=== PATIENT | male | born 1965 | race Caucasian/White ===

== ENCOUNTER 2016-09-26 14:46 | Emergency (ER) | payer OTHER ==
--- NOTE | 2016-09-26 17:25 | ED ORDER SUMMARY ---
..... Patient: QUINCY CARTER OrderSheet [facility] VisitID: [id number] [address] [place] [address] 51y, M Registration Date/Time: 09/26/2016 ORDER SHEET Weight: 104.3 kg (stated) Allergies: Wellbutrin GENERAL ORDERS: CBC w Diff Urgent (15:42 09/26/2016 Darcie Nguyen) (Ack 15:44 TBergley) (15:45 KKnebel R.N.) CMP Urgent (15:42 09/26/2016 Darcie Nguyen) (Ack 15:44 TBergley) (15:45 KKnebel R.N.) MEDICATION ORDERS: Enalaprilat IV 2.5 mg (HIGH ALERT MEDICATION, NOW) (16:31 09/26/2016 Darcie Nguyen) (16:53 KKnebel R.N.) - (16:31 09/26/2016 Darcie Nguyen) (Ack 16:54 KKnebel R.N.) (Hold 16:55 KKnebel R.N.) IV FLUIDS: IV Saline Lock (15:42 09/26/2016 Darcie Nguyen) (15:45 KKnebel R.N.) ORDER SHEET NOTES: [Electronically signed by Nancy Luciano R.N. (19:08 09/26/2016)] [Electronically signed by Yobany Jacobsen Dr. (20:44 09/27/2016)] [Electronically locked/signed by Nancy Luciano R.N. (19:08 09/26/2016)]
--- NOTE | 2016-09-26 17:25 | ED CLINICAL REPORT ---
Clinical Report - Physicians/Mid Levels [facility] [address] [place] [address] 09/26/2016 14:48 Patient: QUINCY CARTER Time Seen: 15:32; initial patient contact. Arrived- By private vehicle. Historian- patient. HISTORY OF PRESENT ILLNESS Chief Complaint: BLOOD PRESSURE ELEVATED. At its maximum, severity described as moderate. When seen in the E.D., severity described as moderate. Modifying factors. Not worsened by anything. Not relieved by anything. This started today and is still present. It was gradual in onset. No loss of appetite, headache, visual disturbance or fatigue. No decreased urine output. Similar symptoms previously: None. Recent medical care: Not recently seen/assessed. REVIEW OF SYSTEMS No difficulty breathing, chest pain, nausea, headache or blackouts. No double vision. No difficulty with ambulation. All systems otherwise negative, except as recorded above. PAST HISTORY Suicidal Ideation. Depression. Alcohol Intoxication. Chest Pain. Peptic Ulcer Disease. Lifestyle / Substance Problems. Atypical Chest Pain. Occult GI Bleed. Gastritis. Hyponatremia. Hypomagnesemia. Abnormal EKG. Anemia. Pancreatitis. GI Bleeding. Pancreatitis. GI Bleeding. Abnormal Test. Atrial Fibrillation. Anxiety Reaction. Facial Fracture. Substance Abuse. Gastroesophageal Reflux Disease. Psychosis. Hypokalemia. Seizure. Alcohol Withdrawal. Hypertension. ADDITIONAL SURGERIES: Appendectomy. Cholecystectomy. Ronnie Fundoplasty. Medications: Atenolol Oral. Allergies: Wellbutrin. SOCIAL HISTORY Never smoker. Occasional alcohol use. No drug use. ADDITIONAL NOTES The nursing notes have been reviewed. PHYSICAL EXAM Vital Signs: 09/26/2016 14:56 BP: 184/118. HR: 68. RR: 16. O2 saturation: 99%. Temp: 99.1 F. Pain level now: 05/18. Have been reviewed. Hypertensive. Heart rate normal. Respiratory rate normal. Temperature normal. Oxygen saturation normal. Appearance: Alert. No acute distress. Eyes: Pupils equal, round and reactive to light. Eyes normal inspection. ENT: Pharynx normal. Neck: Normal inspection. Neck supple. No JVD. CVS: Normal heart rate and rhythm. Heart sounds normal. Respiratory: No respiratory distress. Breath sounds normal. Skin: Skin warm and dry. Normal skin color. Extremities: No calf tenderness. No lower extremity edema. Neuro: Oriented X 3. No motor deficit. LABS, X-RAYS, AND EKG Laboratory Tests: CBC w Diff: (DEVIKA: 09/26/2016 15:06) ( MsgRcvd 09/26/2016 15:48) Final results Test Result Flag Units (Reference) WHITE BLOOD COUNT 8.1 K/uL (4.5-11.5) RED BLOOD COUNT 5.01 M/uL (4.50-5.90) HEMOGLOBIN 15.4 gm/dL (13.5-17.5) HEMATOCRIT 45.6 % (41.0-53.0) MEAN CELL VOLUME 91 fL (80-100) MEAN CORPUSCULAR HGB 31 pg (26-34) MEAN CORPUSCULAR HGB CONC 34 g/dL (31-37) RED CELL DISTRIBUTION WIDTH 13.3 % (11.6-14.8) PLATELET COUNT 257 K/uL (150-400) NEUTROPHIL % 73.0 % (50-75) LYMPH % 19.8 L % (25-40) MONO % 5.9 % (3-14) EOSINOPHIL % 0.7 % (0-4) BASOPHIL % 0.6 % (0-2) CMP: (DEVIKA: 09/26/2016 15:06) ( MsgRcvd 09/26/2016 16:20) Final results Test Result Flag Units (Reference) GLUCOSE 106 mg/dL (70-110) BUN 12 mg/dL (7-18) CREATININE 1.1 mg/dL (0.6-1.3) Estimated GFR >60 mL/min Estimated GFR- >60 mL/min Note: Persistent reduction over 3 months in eGFR<60 mL/min/1.73 m2 defines CKD. Patients with eGFR values>=60 mL/min/1.73 m2 may also have CKD if evidence ofpersistent proteinuria. Additional information may be foundat www.kidney.org. SODIUM 141 mmol/L (136-145) POTASSIUM 4.3 mmol/L (3.5-5.1) CHLORIDE 103 mmol/L (98-107) CARBON DIOXIDE 25 mmol/L (21-32) CALCIUM 8.5 mg/dL (8.5-10.1) TOTAL PROTEIN 7.7 g/dL (6.4-8.2) ALBUMIN 4.2 g/dL (3.3-5.0) BILIRUBIN, TOTAL 1.0 mg/dL (0.0-1.0) ALKALINE PHOSPHATASE 74 U/L (46-116) AST (SGOT) 42 H U/L (15-37) ALT (SGPT) 50 U/L (12-78) . PROGRESS AND PROCEDURES Course of Care: BP down to 151/94 with Enaliprat 5 IV. Will D/C on Lisinopril 10 and f/u w/ PCP. Disposition: Discharged home in good and improved condition. Condition: good. CLINICAL IMPRESSION Uncontrolled essential hypertension. INSTRUCTIONS Avoid salty foods. Prescription Medications: Lisinopril 10 mg: take 1 orally every 24 hours. Dispense fifteen (15). No refills. (Start on 09/27 in the AM) Follow-up: Follow up with your doctor in about two days. Call for an appointment. Blood pressure screening was not performed during this visit because the patient has an active diagnosis of hypertension. (Electronically signed by Yobany Jacobsen Dr. 09/27/2016 20:44)
--- NOTE | 2016-09-26 17:25 | ED NURSING NOTES ---
Clinical Report - Nurses [facility] [address] [place] [address] 09/26/2016 14:48 Patient: QUINCY CARTER TRIAGE Triage time 14:56 Sep 26 2016. Acuity: LEVEL 3. Chief Complaint: (high blood pressure). Alert. No acute distress. SEPSIS SCREEN: Sepsis Screen. Negative (no infection suspected/documented). RICHARD COMA SCORE: Richard Coma Scale: 15- eyes open spontaneously (4); best verbal response- oriented x 4 (5); best motor response- obeys commands (6). --15:02 Nancy Luciano R.N. 14:56 09/26/16. BP: 184/118. HR: 68. RR: 16. O2 saturation: 99%. Temp: 99.1 F. Pain level now: 05/18. --15:02 Nancy Luciano R.N. Weight: 104.3 kg stated. Height/Length: 72 inches Per Patient. BMI: 31.2. --15:02 Nancy Luciano R.N. Medications Atenolol Oral. --14:58 Nancy Luciano R.N. Allergies Wellbutrin. --14:58 Nancy Luciano R.N. History Arrived by private vehicle. Historian: patient. Accompanied by family. This is a new problem and onset was gradual. (about 1 weeks). He has had a nonproductive cough (a few times). ( chest tightness once in awhile). 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 PAST MEDICAL HX: Immunizations: up-to-date. SOCIAL HX: Never smoker. Regular alcohol use; consumes liquor weekly. Last drink was less than 24 hours ago. No drug use. No infectious disease exposure. SELF HARM ASSESSMENT: A self harm assessment was performed. The patient answered "no" to the question "Do you have thoughts of harming or killing yourself?". FALL RISK ASSESSMENT: Fall risk assessment completed. No fall risk identified. NUTRITIONAL RISK ASSESSMENT: The nutritional risk assessment revealed no deficiencies. FUNCTIONAL ASSESSMENT: Functional assessment: no impairments noted. LEARNING NEEDS ASSESSMENT: The learning needs assessment revealed no barriers. ABUSE ASSESSMENT: Abuse assessment: The patient was asked "Do you feel safe in your home?". SKIN INTEGRITY ASSESSMENT: Skin integrity risk assessment completed. No skin integrity risk identified. --15:02 Nancy Luciano R.N. PROBLEMS: Suicidal Ideation. Depression. Alcohol Intoxication. Chest Pain. Peptic Ulcer Disease. Lifestyle / Substance Problems. Atypical Chest Pain. Occult GI Bleed. Gastritis. Hyponatremia. Hypomagnesemia. Abnormal EKG. Anemia. Pancreatitis. GI Bleeding. Pancreatitis. GI Bleeding. Abnormal Test. Atrial Fibrillation. Anxiety Reaction. Facial Fracture. Substance Abuse. Gastroesophageal Reflux Disease. Psychosis. Hypokalemia. Seizure. Alcohol Withdrawal. Hypertension. Immunizations. --14:59 Nancy Luciano R.N. ADDITIONAL SURGERIES: Appendectomy. Cholecystectomy. Ronnie Fundoplasty. --14:59 Nancy Luciano R.N. Interventions ID and allergy band on patient. To room. --15:02 Nancy Luciano R.N. PHYSICAL ASSESSMENT Ambulatory to room. GENERAL / NEURO / PSYCH: Alert. Oriented X 4. Appears in no acute distress. HEENT: No facial asymmetry noted. Mucous membranes are pink. RESPIRATORY: Respirations not labored. CVS: Capillary refill less than 2 seconds. GI / : Abdomen soft and nontender. SKIN: Skin is warm and dry. --15:02 Nancy Luciano R.N. NURSING PROGRESS NOTES Pulse oximeter and NIBP monitor placed on patient; monitor alarms on. Patient gowned. Head of bed elevated. Patient identifiers checked. Call light placed in reach. Side rails up x 1. Bed placed in lowest position. Brakes of bed on. --15:03 Nancy Luciano R.N. 15:35 09/26/2016 Site #1 started via IV in the right antecubital space with an 20g angiocath, with aseptic technique and good blood return; one attempt. Blood drawn: rainbow set. Labeled in the presence of the patient and sent to the lab. Saline lock flushed with 10 mL saline. --15:45 Nancy Luciano R.N. The patient is calm and resting quietly. --16:03 Nancy Luciano R.N. 16:02 09/26/16. BP: 164/106. HR: 78. RR: 16. O2 saturation: 98%. Pain level now: 0/10. --16:03 Nancy Luciano R.N. 16:48 09/26/2016 Enalaprilat IVP 2.5 mg given over 5 minute(s) via site #1. Allergies verified and confirmed 5 rights. IV patency established. IV site checked: no pain, redness, or swelling. IV flushed thoroughly pre- and post-medication administration. IVP given by RN. --16:53 Nancy Luciano R.N. The patient is calm and resting quietly. --16:57 Nancy Luciano R.N. 16:55 09/26/16. BP: 157/104. HR: 75. RR: 16. O2 saturation: 97%. --16:57 Nancy Luciano R.N. DISPOSITION / DISCHARGE 17:45 09/26/2016 Site #1 removed upon discharge. Bandage applied. --17:45 Nancy Luciano R.N. Condition at departure: improved. No learning barriers present. Discharge instructions provided and reviewed with the patient. Reviewed medication(s) side effects, precautions, dosing and course information. Prescription(s) given to the patient. Reviewed referral to a primary care physician. Patient verbalized understanding. Written instructions provided in [place]. The patient was discharged home and accompanied by spouse. He left the Emergency Department ambulatory and via private vehicle. Spouse driving. FALL RISK ASSESSMENT: Fall risk assessment completed. No fall risk identified. --17:45 Nancy Luciano R.N. 17:44 09/26/16. BP: 152/106. HR: 72. RR: 16. O2 saturation: 96%. Pain level now: 0/10. --17:45 Nancy Luciano R.N. Departure time: 17:47 Sep 26 2016. --17:47 Nancy Luciano R.N. Locked/Released at 09/26/2016 19:08 by Nancy Luciano R.N.
--- NOTE | 2016-09-26 17:25 | ED ORDER SUMMARY ---
..... Patient: QUINCY CARTER OrderSheet [facility] VisitID: [id number] [address] [place] [address] 51y, M Registration Date/Time: 09/26/2016 ORDER SHEET Weight: 104.3 kg (stated) Allergies: Wellbutrin GENERAL ORDERS: CBC w Diff Urgent (15:42 09/26/2016 Darcie Nguyen) (Ack 15:44 TBergley) (15:45 KKnebel R.N.) CMP Urgent (15:42 09/26/2016 Darcie Nguyen) (Ack 15:44 TBergley) (15:45 KKnebel R.N.) MEDICATION ORDERS: Enalaprilat IV 2.5 mg (HIGH ALERT MEDICATION, NOW) (16:31 09/26/2016 Darcie Nguyen) (16:53 KKnebel R.N.) - (16:31 09/26/2016 Darcie Nguyen) (Ack 16:54 KKnebel R.N.) (Hold 16:55 KKnebel R.N.) IV FLUIDS: IV Saline Lock (15:42 09/26/2016 Darcie Nguyen) (15:45 KKnebel R.N.) ORDER SHEET NOTES: [Electronically signed by Nancy Luciano R.N. (19:08 09/26/2016)] [Electronically signed by Yobany Jacobsen Dr. (20:44 09/27/2016)] [Electronically locked/signed by Nancy Luciano R.N. (19:08 09/26/2016)]
--- NOTE | 2016-09-27 20:44 | ED DISCHARGE INSTRUCTIONS ---
Patient: QUINCY CARTER General Instructions [facility] VisitID: [id number] [place] [address] 51y, M Registration Date/Time: 09/26/2016 Uncontrolled essential hypertension. INSTRUCTIONS Avoid salty foods. Prescription Medications: Lisinopril 10 mg: take 1 orally every 24 hours. Dispense fifteen (15). No refills. (Start on 09/27 in the AM) Follow-up: Follow up with your doctor in about two days. Call for an appointment. Blood pressure screening was not performed during this visit because the patient has an active diagnosis of hypertension. ADDITIONAL INFORMATION Hypertension, Out Of Control (Established) Your blood pressure was unusually high today. This can occur as a result of missing doses of your blood pressure medicine. Some asthma inhalers, decongestants, diet pills, and street drugs such as cocaine and amphetamine can worsen hypertension. An increase in body weight, increase in salt intake, smoking, and caffeine are other causes. Emotional upset or acute pain can cause a sudden rapid rise in blood pressure which may return to normal after a period of rest. A normal blood pressure is less than 140/90. The first (top) number is the systolic pressure. The second (bottom) number is the diastolic pressure. Hypertension exists when either the top number is 140 or higher, OR the bottom number is 90 or higher on repeated measurements. Home Care: All patients with high blood pressure should do the following to lower their pressure. If you are on blood pressure medicines, then these methods may reduce or eliminate your need for medicines in the future. Begin a weight-loss program if you are overweight. Reduce your salt intake. Avoid high-salt foods (olives, pickles, smoked meats, salted potato chips, etc.). Do not add salt to your food at the table. Use only small amounts of salt when cooking. Begin an exercise program. Discuss with your doctor what type of exercise program would be best for you. It doesnt have to be difficult. Even brisk walking for 20 minutes3 times a week is a good form of exercise. Avoid medicines which contain heart stimulants. This includes many cold and sinus decongestant pills and sprays as well as diet pills. Check the warnings about hypertension on the label. Stimulants such as amphetamine or cocaine could be lethal for someone with hypertension. Never take these. Limit your caffeine intake or switch to decaf. Stop smoking. If you are a long-time smoker, this can be hard. Enroll in a stop-smoking program to improve your chance of success. Talk to your physician about ways to improve your chance of success. Learning how to handle stress better is an important part of any program to lower blood pressure. Learn about relaxation methods such as meditation, yoga, or biofeedback. If medicines were prescribed, take them exactly as directed. Missing doses may cause your blood pressure to get out of control. Consider buying an automatic blood pressure machine (available at many pharmacies). Use this to monitor your blood pressure and report to your doctor. Follow Up: Regular visits to your own doctor for blood pressure checks and medicine adjustment is an important part of your care. Make a follow-up appointment as directed by our staff. Get Prompt Medical Attention if any of the following occur: Chest, arm, shoulder, neck, or upper back pain Shortness of breath Severe headache Throbbing or rushing sound in the ears Nosebleed Extreme drowsiness, confusion, or fainting Dizziness or vertigo (dizziness with spinning sensation) Weakness of an arm or leg or one side of the face Difficulty with speech or vision Low-Salt Diet (2 Grams/Day) This diet eliminates foods that are high in salt and restricts the amount of salt that you cook with. It is most often used for patients with high blood pressure, edema (fluid retention), kidney, liver, and heart disease. Table salt contains the mineral sodium. The body needs sodium to work normally. But too much sodium can make your health problems worse. Your healthcare provider is recommending a low-salt (also called low-sodium) diet for you. Your total daily allowance of salt (sodium) is 2 grams. This equals 2,000 milligrams (mg). It is less than 1 teaspoon of table salt. This means you can have only about 700 mg of sodium at each meal. When you cook, limit the salt you use. And if you can avoid using salt, even better. Do not add salt at the table. So, throw away the saltshaker! When shopping, read the package labels. Salt is often called sodium on the label. Choose foods that are Salt-Free, Low Salt, or Very Low Salt. Note that foods with Reduced Salt may notlower your salt intake enough. Beverages OK: Tea, coffee, carbonated beverages, juices AVOID: Flavored international coffees, electrolyte replacement drinks, sports beverages Bread & Cereals OK: All regular bread, rolls, cereals, cakes; low-salt crackers, matzoh crackers AVOID: Salted crackers, pretzels, popcorn; nigerien toast, pancakes, muffins Fruits & Desserts OK: Ice cream, frozen yogurt, juice bars, gelatin (Jell-O), cookies and pies, sugar, honey, jelly, hard candy AVOID: Most pies, cakes and cookies prepared or processed with salt, instant pudding Meats OK: All fresh meat, fish, poultry, low-salt tuna AVOID: Smoked, pickled, brine-cured, or salted meats or fish. Thisincludes harrison, chipped beef, corned beef, hot dogs, luncheon meats, ham, kosher meats, salt pork, sausage, canned tuna, salted codfish, smokedsalmon, matthew, sardines, or anchovies. Dairy OK: Milk, chocolate milk, hot chocolate mix; eggs, Low Salt cheeses, yogurt, egg substitute AVOID: Processed cheese, cheese spreads, Roquefort, Camembert, and cottage cheese, buttermilk, instant breakfast drink Beans, Potatoes & Pasta OK: Dry beans, split peas, lentils, potatoes, rice, macaroni, noodles, spaghetti without added salt AVOID: Potato chips, tortilla chips, and similar products Soups OK: Low-salt soups and broths made with allowed foods AVOID: Bouillon cubes, soups with smoked or salted meats, regular soup and broth Vegetables OK: Most are okay; low-salt tomato and vegetable juices AVOID: Sauerkraut and other brine-soaked vegetables, pickles and other pickled vegetables, tomato juice, olives Seasoning & Spices OK: Most seasonings are okay. Good substitutes for salt include: fresh herb blends, Tabasco, lemon, garlic, barrow, vinegar, dry mustard, parsley, cilantro, horseradish, tomato paste, regular margarine, mayonnaise, butter, cream cheese, vegetable oil, cream, low-salt salad dressing and gravy AVOID: Regular ketchup, relishes, pickles, soy sauce, teriyaki sauce, Worcestershire sauce, BBQ sauce, tartar sauce, meat tenderizer, chili sauce, regular gravy, regular salad dressing Lisinopril Oral tablet What is this medicine? LISINOPRIL (lyse IN oh pril) is an FAYE inhibitor. This medicine is used to treat high blood pressure and heart failure. It is also used to protect the heart immediately after a heart attack. How should I use this medicine? Take this medicine by mouth with a glass of water. Follow the directions on your prescription label. You may take this medicine with or without food. Take your medicine at regular intervals. Do not stop taking this medicine except on the advice of your doctor or health floor care specialist. Talk to your architectural draftsman regarding the use of this medicine in children. Special care may be needed. While this drug may be prescribed for children as young as 6 years of age for selected conditions, precautions do apply. What side effects may I notice from receiving this medicine? Side effects that you should report to your doctor or health floor care specialist as soon as possible: abdominal pain with or without nausea or vomiting allergic reactions like skin rash or hives, swelling of the hands, feet, face, lips, throat, or tongue dark urine difficulty breathing dizzy, lightheaded or fainting spell fever or sore throat irregular heart beat, chest pain pain or difficulty passing urine redness, blistering, peeling or loosening of the skin, including inside the mouth unusually weak yellowing of the eyes or skin Side effects that usually do not require medical attention (report to your doctor or health floor care specialist if they continue or are bothersome): change in taste cough decreased sexual function or desire headache sun sensitivity tiredness What may interact with this medicine? diuretics lithium NSAIDs, medicines for pain and inflammation, like ibuprofen or naproxen hhho-lol-nfecoht herbal supplements like hawthorn potassium salts or potassium supplements salt substitutes What if I miss a dose? If you miss a dose, take it as soon as you can. If it is almost time for your next dose, take only that dose. Do not take double or extra doses. Where should I keep my medicine? Keep out of the reach of children. Store at room temperature between 15 and 30 degrees C (59 and 86 degrees F). Protect from moisture. Keep container tightly closed. Throw away any unused medicine after the expiration date. What should I tell my health care provider before I take this medicine? They need to know if you have any of these conditions: diabetes heart or blood vessel disease immune system disease like lupus or scleroderma kidney disease low blood pressure previous swelling of the tongue, face, or lips with difficulty breathing, difficulty swallowing, hoarseness, or tightening of the throat an unusual or allergic reaction to lisinopril, other FAYE inhibitors, insect venom, foods, dyes, or preservatives or trying to get breast-feeding What should I watch for while using this medicine? Visit your doctor or health floor care specialist for regular check ups. Check your blood pressure as directed. Ask your doctor what your blood pressure should be, and when you should contact him or her. Call your doctor or health floor care specialist if you notice an irregular or fast heart beat. Women should inform their doctor if they wish to become or think they might be . There is a potential for serious side effects to an unborn child. Talk to your health floor care specialist or pharmacist for more information. Check with your doctor or health floor care specialist if you get an attack of severe diarrhea, nausea and vomiting, or if you sweat a lot. The loss of too much body fluid can make it dangerous for you to take this medicine. You may get drowsy or dizzy. Do not drive, use machinery, or do anything that needs mental alertness until you know how this drug affects you. Do not stand or sit up quickly, especially if you are an older patient. This reduces the risk of dizzy or fainting spells. Alcohol can make you more drowsy and dizzy. Avoid alcoholic drinks. Avoid salt substitutes unless you are told otherwise by your doctor or health floor care specialist. Do not treat yourself for coughs, colds, or pain while you are taking this medicine without asking your doctor or health floor care specialist for advice. Some ingredients may increase your blood pressure. You have been given the following additional information: Hypertension, Established, Out Of Control Diet, Low Salt (2Gm) Lisinopril Oral tablet (Electronically signed by Yobany Jacobsen Dr. 09/27/2016 20:44)
--- NOTE | 2016-09-27 20:44 | ED MED RECONCILIATION SUMMARY ---
Patient: QUINCY CARTER Medication Reconciliation Report [facility] VisitID: [id number] [address] [place] [address] 51y, M Registration Date/Time: 09/26/2016 Weight: 104.3 kg Height/Length: 72 in. BMI: 31.2 ALLERGIES: Wellbutrin The patient's Home Medications are listed below: THE FOLLOWING MEDICATIONS NEED TO BE RECONCILED: Atenolol Oral The source(s) of the original Home Medication information: Not obtained. The following Medications were given to the patient in the Emergency Department: Enalaprilat [IVP] IVP 2.5 mg, administered: 09/26/2016 4:48:00 PM The following Medications were prescribed to the patient: Lisinopril 10 mg: take 1 orally every 24 hours. Dispense fifteen (15). No refills.(Start on 09/27 in the AM) -- Yobany Jacobsen Dr.
--- NOTE | 2016-09-27 20:44 | ED MAR SUMMARY ---
..... Medication Administration Record [facility] [address] [place] [address] Patient: QUINCY CARTER Visit ID: [id number] 51y, M Weight: 104.3 kg Height/Length: 72 in BMI: 31.2 ALLERGIES: Wellbutrin Given 16:48 09/26/2016 Nancy Luciano R.N. Medication Administered: ENALAPRILAT [IVP], Dose: 2.5 mg IVP over 5 minute(s), Site: #1 right AC. Medication Ordered: Enalaprilat IV 2.5 mg (HIGH ALERT MEDICATION, NOW).
--- NOTE | 2016-09-27 20:44 | ED MED RECONCILIATION SUMMARY ---
Patient: QUINCY CARTER Medication Reconciliation Report [facility] VisitID: [id number] [address] [place] [address] 51y, M Registration Date/Time: 09/26/2016 Weight: 104.3 kg Height/Length: 72 in. BMI: 31.2 ALLERGIES: Wellbutrin The patient's Home Medications are listed below: THE FOLLOWING MEDICATIONS NEED TO BE RECONCILED: Atenolol Oral The source(s) of the original Home Medication information: Not obtained. The following Medications were given to the patient in the Emergency Department: Enalaprilat [IVP] IVP 2.5 mg, administered: 09/26/2016 4:48:00 PM The following Medications were prescribed to the patient: Lisinopril 10 mg: take 1 orally every 24 hours. Dispense fifteen (15). No refills.(Start on 09/27 in the AM) -- Yobany Jacobsen Dr.
--- NOTE | 2016-09-27 20:44 | ED MAR SUMMARY ---
..... Medication Administration Record [facility] [address] [place] [address] Patient: QUINCY CARTER Visit ID: [id number] 51y, M Weight: 104.3 kg Height/Length: 72 in BMI: 31.2 ALLERGIES: Wellbutrin Given 16:48 09/26/2016 Nancy Luciano R.N. Medication Administered: ENALAPRILAT [IVP], Dose: 2.5 mg IVP over 5 minute(s), Site: #1 right AC. Medication Ordered: Enalaprilat IV 2.5 mg (HIGH ALERT MEDICATION, NOW).
--- NOTE | 2016-09-27 20:44 | ED DISCHARGE INSTRUCTIONS ---
Patient: QUINCY CARTER General Instructions [facility] VisitID: [id number] [place] [address] 51y, M Registration Date/Time: 09/26/2016 Uncontrolled essential hypertension. INSTRUCTIONS Avoid salty foods. Prescription Medications: Lisinopril 10 mg: take 1 orally every 24 hours. Dispense fifteen (15). No refills. (Start on 09/27 in the AM) Follow-up: Follow up with your doctor in about two days. Call for an appointment. Blood pressure screening was not performed during this visit because the patient has an active diagnosis of hypertension. ADDITIONAL INFORMATION Hypertension, Out Of Control (Established) Your blood pressure was unusually high today. This can occur as a result of missing doses of your blood pressure medicine. Some asthma inhalers, decongestants, diet pills, and street drugs such as cocaine and amphetamine can worsen hypertension. An increase in body weight, increase in salt intake, smoking, and caffeine are other causes. Emotional upset or acute pain can cause a sudden rapid rise in blood pressure which may return to normal after a period of rest. A normal blood pressure is less than 140/90. The first (top) number is the systolic pressure. The second (bottom) number is the diastolic pressure. Hypertension exists when either the top number is 140 or higher, OR the bottom number is 90 or higher on repeated measurements. Home Care: All patients with high blood pressure should do the following to lower their pressure. If you are on blood pressure medicines, then these methods may reduce or eliminate your need for medicines in the future. Begin a weight-loss program if you are overweight. Reduce your salt intake. Avoid high-salt foods (olives, pickles, smoked meats, salted potato chips, etc.). Do not add salt to your food at the table. Use only small amounts of salt when cooking. Begin an exercise program. Discuss with your doctor what type of exercise program would be best for you. It doesnt have to be difficult. Even brisk walking for 20 minutes3 times a week is a good form of exercise. Avoid medicines which contain heart stimulants. This includes many cold and sinus decongestant pills and sprays as well as diet pills. Check the warnings about hypertension on the label. Stimulants such as amphetamine or cocaine could be lethal for someone with hypertension. Never take these. Limit your caffeine intake or switch to decaf. Stop smoking. If you are a long-time smoker, this can be hard. Enroll in a stop-smoking program to improve your chance of success. Talk to your physician about ways to improve your chance of success. Learning how to handle stress better is an important part of any program to lower blood pressure. Learn about relaxation methods such as meditation, yoga, or biofeedback. If medicines were prescribed, take them exactly as directed. Missing doses may cause your blood pressure to get out of control. Consider buying an automatic blood pressure machine (available at many pharmacies). Use this to monitor your blood pressure and report to your doctor. Follow Up: Regular visits to your own doctor for blood pressure checks and medicine adjustment is an important part of your care. Make a follow-up appointment as directed by our staff. Get Prompt Medical Attention if any of the following occur: Chest, arm, shoulder, neck, or upper back pain Shortness of breath Severe headache Throbbing or rushing sound in the ears Nosebleed Extreme drowsiness, confusion, or fainting Dizziness or vertigo (dizziness with spinning sensation) Weakness of an arm or leg or one side of the face Difficulty with speech or vision Low-Salt Diet (2 Grams/Day) This diet eliminates foods that are high in salt and restricts the amount of salt that you cook with. It is most often used for patients with high blood pressure, edema (fluid retention), kidney, liver, and heart disease. Table salt contains the mineral sodium. The body needs sodium to work normally. But too much sodium can make your health problems worse. Your healthcare provider is recommending a low-salt (also called low-sodium) diet for you. Your total daily allowance of salt (sodium) is 2 grams. This equals 2,000 milligrams (mg). It is less than 1 teaspoon of table salt. This means you can have only about 700 mg of sodium at each meal. When you cook, limit the salt you use. And if you can avoid using salt, even better. Do not add salt at the table. So, throw away the saltshaker! When shopping, read the package labels. Salt is often called sodium on the label. Choose foods that are Salt-Free, Low Salt, or Very Low Salt. Note that foods with Reduced Salt may notlower your salt intake enough. Beverages OK: Tea, coffee, carbonated beverages, juices AVOID: Flavored international coffees, electrolyte replacement drinks, sports beverages Bread & Cereals OK: All regular bread, rolls, cereals, cakes; low-salt crackers, matzoh crackers AVOID: Salted crackers, pretzels, popcorn; congolese toast, pancakes, muffins Fruits & Desserts OK: Ice cream, frozen yogurt, juice bars, gelatin (Jell-O), cookies and pies, sugar, honey, jelly, hard candy AVOID: Most pies, cakes and cookies prepared or processed with salt, instant pudding Meats OK: All fresh meat, fish, poultry, low-salt tuna AVOID: Smoked, pickled, brine-cured, or salted meats or fish. Thisincludes harrison, chipped beef, corned beef, hot dogs, luncheon meats, ham, kosher meats, salt pork, sausage, canned tuna, salted codfish, smokedsalmon, matthew, sardines, or anchovies. Dairy OK: Milk, chocolate milk, hot chocolate mix; eggs, Low Salt cheeses, yogurt, egg substitute AVOID: Processed cheese, cheese spreads, Roquefort, Camembert, and cottage cheese, buttermilk, instant breakfast drink Beans, Potatoes & Pasta OK: Dry beans, split peas, lentils, potatoes, rice, macaroni, noodles, spaghetti without added salt AVOID: Potato chips, tortilla chips, and similar products Soups OK: Low-salt soups and broths made with allowed foods AVOID: Bouillon cubes, soups with smoked or salted meats, regular soup and broth Vegetables OK: Most are okay; low-salt tomato and vegetable juices AVOID: Sauerkraut and other brine-soaked vegetables, pickles and other pickled vegetables, tomato juice, olives Seasoning & Spices OK: Most seasonings are okay. Good substitutes for salt include: fresh herb blends, Tabasco, lemon, garlic, barrow, vinegar, dry mustard, parsley, cilantro, horseradish, tomato paste, regular margarine, mayonnaise, butter, cream cheese, vegetable oil, cream, low-salt salad dressing and gravy AVOID: Regular ketchup, relishes, pickles, soy sauce, teriyaki sauce, Worcestershire sauce, BBQ sauce, tartar sauce, meat tenderizer, chili sauce, regular gravy, regular salad dressing Lisinopril Oral tablet What is this medicine? LISINOPRIL (lyse IN oh pril) is an FAYE inhibitor. This medicine is used to treat high blood pressure and heart failure. It is also used to protect the heart immediately after a heart attack. How should I use this medicine? Take this medicine by mouth with a glass of water. Follow the directions on your prescription label. You may take this medicine with or without food. Take your medicine at regular intervals. Do not stop taking this medicine except on the advice of your doctor or health women's health care nurse practitioner. Talk to your associate consulting engineer regarding the use of this medicine in children. Special care may be needed. While this drug may be prescribed for children as young as 6 years of age for selected conditions, precautions do apply. What side effects may I notice from receiving this medicine? Side effects that you should report to your doctor or health women's health care nurse practitioner as soon as possible: abdominal pain with or without nausea or vomiting allergic reactions like skin rash or hives, swelling of the hands, feet, face, lips, throat, or tongue dark urine difficulty breathing dizzy, lightheaded or fainting spell fever or sore throat irregular heart beat, chest pain pain or difficulty passing urine redness, blistering, peeling or loosening of the skin, including inside the mouth unusually weak yellowing of the eyes or skin Side effects that usually do not require medical attention (report to your doctor or health women's health care nurse practitioner if they continue or are bothersome): change in taste cough decreased sexual function or desire headache sun sensitivity tiredness What may interact with this medicine? diuretics lithium NSAIDs, medicines for pain and inflammation, like ibuprofen or naproxen [id number] herbal supplements like hawthorn potassium salts or potassium supplements salt substitutes What if I miss a dose? If you miss a dose, take it as soon as you can. If it is almost time for your next dose, take only that dose. Do not take double or extra doses. Where should I keep my medicine? Keep out of the reach of children. Store at room temperature between 15 and 30 degrees C (59 and 86 degrees F). Protect from moisture. Keep container tightly closed. Throw away any unused medicine after the expiration date. What should I tell my health care provider before I take this medicine? They need to know if you have any of these conditions: diabetes heart or blood vessel disease immune system disease like lupus or scleroderma kidney disease low blood pressure previous swelling of the tongue, face, or lips with difficulty breathing, difficulty swallowing, hoarseness, or tightening of the throat an unusual or allergic reaction to lisinopril, other FAYE inhibitors, insect venom, foods, dyes, or preservatives or trying to get breast-feeding What should I watch for while using this medicine? Visit your doctor or health women's health care nurse practitioner for regular check ups. Check your blood pressure as directed. Ask your doctor what your blood pressure should be, and when you should contact him or her. Call your doctor or health women's health care nurse practitioner if you notice an irregular or fast heart beat. Women should inform their doctor if they wish to become or think they might be . There is a potential for serious side effects to an unborn child. Talk to your health women's health care nurse practitioner or pharmacist for more information. Check with your doctor or health women's health care nurse practitioner if you get an attack of severe diarrhea, nausea and vomiting, or if you sweat a lot. The loss of too much body fluid can make it dangerous for you to take this medicine. You may get drowsy or dizzy. Do not drive, use machinery, or do anything that needs mental alertness until you know how this drug affects you. Do not stand or sit up quickly, especially if you are an older patient. This reduces the risk of dizzy or fainting spells. Alcohol can make you more drowsy and dizzy. Avoid alcoholic drinks. Avoid salt substitutes unless you are told otherwise by your doctor or health women's health care nurse practitioner. Do not treat yourself for coughs, colds, or pain while you are taking this medicine without asking your doctor or health women's health care nurse practitioner for advice. Some ingredients may increase your blood pressure. You have been given the following additional information: Hypertension, Established, Out Of Control Diet, Low Salt (2Gm) Lisinopril Oral tablet (Electronically signed by Yobany Jacobsen Dr. 09/27/2016 20:44)
== END 2016-09-26 17:47 | disposition home or self-care (01) ==
LOC: ED SRH 14:46
DX: I10 Essential (primary) hypertension (principal); K21.9 Gastro-esophageal reflux disease without esophagitis; Z88.8 Allergy status to other drugs, medicaments and biological substances; I48.91 Unspecified atrial fibrillation
CPT/HCPCS: 90100; 95059

== ENCOUNTER 2016-11-05 23:34 | Inpatient (IN) | payer OTHER ==
[~2016-11-05] VITALS: Ht 182.9 cm; Wt 99.1 kg
[2016-11-06] VITALS (7 sets, daily range): BP systolic 144–155; BP diastolic 94–110
--- NOTE | 2016-11-06 02:13 | ED NURSING NOTES ---
Clinical Report - [facility] [address] [place] [address] 11/05/2016 23:35 Patient: QUINCY CARTER TRIAGE Triage time 23:41 Nov 05 2016. Acuity: LEVEL 3. Chief Complaint: ABDOMINAL PAIN, NAUSEA, VOMITING and DIARRHEA. SEPSIS SCREEN: Sepsis Screen: negative. Negative (no infection suspected/documented). RICHARD COMA SCORE: Richard Coma Scale: 15- eyes open spontaneously (4); best verbal response- oriented x 4 (5); best motor response- obeys commands (6). --23:48 Brisa Landa 23:41 11/05/16. HR: 79. RR: 20. O2 saturation: 95% on room air. Temp: 98.9 F (oral). Pain level now: 10. --23:48 Brisa Landa 23:48 11/05/16. BP: 154/90. --06:49 Brisa Landa. Weight: 104.3 kg stated. Height/Length: 72 inches Per Patient. BMI: 31.2. --23:46 Brisa Landa. Medications Atenolol Oral. --23:44 Brisa Landa QUEtiapine Fumarate Oral. --23:44 Brisa Landa. Medication/allergy information source: the patient. --23:48 Brisa Landa. Allergies Wellbutrin. --23:44 Brisa Landa. History Arrived by private vehicle. Historian: patient. Accompanied by family. Onset. (4 days). ( Patient reports he woke from sleep vomiting, nausea and diarrhea on Tuesday. He had just believed it was a food poisoning. He recently began a new medication Quetipine fumarate and took one dose and began to have abdominal pain yesterday in addition to the vomiting. He believes it may due to the new medication. He reports bariatric surgery also and states he has difficulty vomiting at all.). He has had diarrhea. PAST MEDICAL HX: Immunizations: up-to-date. SOCIAL HX: Never smoker. Occasional alcohol use. No drug use. No recent travel. No infectious disease exposure. No known contact with a sick individual. ABUSE ASSESSMENT: No report of abuse. FALL RISK ASSESSMENT: Fall risk assessment completed. No fall risk identified. NUTRITIONAL RISK ASSESSMENT: The nutritional risk assessment revealed no deficiencies. FUNCTIONAL ASSESSMENT: Functional assessment: no impairments noted. LEARNING NEEDS ASSESSMENT: The learning needs assessment revealed no barriers. SKIN INTEGRITY ASSESSMENT: Skin integrity risk assessment completed. No skin integrity risk identified. --23:48 Brisa Landa Primary physician ([facility]). --23:48 Brisa Landa. PROBLEMS: Suicidal Ideation. Depression. Alcohol Intoxication. Chest Pain. Peptic Ulcer Disease. Lifestyle / Substance Problems. Atypical Chest Pain. Occult GI Bleed. Gastritis. Hyponatremia. Hypomagnesemia. Abnormal EKG. Anemia. Pancreatitis. GI Bleeding. Pancreatitis. GI Bleeding. Abnormal Test. Atrial Fibrillation. Anxiety Reaction. Facial Fracture. Substance Abuse. Gastroesophageal Reflux Disease. Psychosis. Hypokalemia. Seizure. Alcohol Withdrawal. Hypertension. Immunizations. --23:44 Brisa Landa. ADDITIONAL SURGERIES: Appendectomy. Cholecystectomy. Ronnie Fundoplasty. --23:44 Brisa Landa. Interventions ID band on patient. To treatment room. --23:48 Brisa Landa. PHYSICAL ASSESSMENT Ambulatory to room. Patient gowned. GENERAL / NEURO / PSYCH: Alert. Oriented X 4. Appears in pain. HEENT: Mucous membranes are pink. RESPIRATORY: Respirations not labored. CVS: Normal sinus rhythm noted. GI / : Abdomen soft. Abdominal tenderness in the epigastric area and periumbilical area. SKIN: Skin is warm and dry. --23:49 Brisa Landa. NURSING PROGRESS NOTES 23:49 11/05/16. Pulse oximeter and NIBP monitor placed on patient; monitor alarms on. Patient gowned. Reassurance given to the patient. Two patient identifiers checked. Call light placed in reach. Side rails up x 1. Bed placed in lowest position. Brakes of bed on. Patient ready for evaluation- chart flagged and ED physician notified. --23:49 Brisa Landa 23:54 11/05/2016 Site #1 started via IV in the right antecubital space with an 20g angiocath, with aseptic technique and good blood return; one attempt. Blood drawn: rainbow set. Labeled in the presence of the patient and sent to the lab. Saline lock flushed with 10 mL saline. --23:59 Brisa Landa Patient ID band checked for patient name and birthdate: patient confirmed. Instructions provided to collect clean catch urine and patient verbalized understanding urine collected with return of salvatore-colored clear urine; sample sent to lab for urinalysis and culture. Specimen labeled in the presence of the patient. --23:59 Brisa Landa 00:11/06/2016 Started bag #1 1000 mL IV Fluids IV NS (Saline); at 1000 mL/hr over 1 hour(s) via site #1. Allergies verified and confirmed 5 rights. IV patency established. IV site checked: no pain, redness, or swelling. IV flushed thoroughly pre- and post-medication administration. --00: Brisa Landa 00:11/06/2016 Zofran (Ondansetron HCl) IVP 4 mg given over 2 minute(s) via site #1. Allergies verified and confirmed 5 rights. IV patency established. IV site checked: no pain, redness, or swelling. IV flushed thoroughly pre- and post-medication administration. IVP given by RN. --: Brisa Landa 00:11/06/2016 GI COCKTAIL WHITE (Simethicone) PO Oral Suspension 30 mL given. Allergies verified and confirmed 5 rights. --00: Brisa Landa 00:22 11/06/2016 Morphine IVP 4 mg given over 2 minute(s) via site #1. Allergies verified, confirmed 5 rights and sedative warning given to the patient. IV patency established. IV site checked: no pain, redness, or swelling. IV flushed thoroughly pre- and post-medication administration. IVP given by RN. --: Brisa Landa Pulse oximeter and NIBP monitor placed on patient; monitor alarms on. --00: Brisa Landa 00:51 11/06/2016 Morphine IVP 8 mg given over 4 minute(s) via site #1. Allergies verified, confirmed 5 rights and sedative warning given to the patient. IV patency established. IV site checked: no pain, redness, or swelling. IV flushed thoroughly pre- and post-medication administration. IVP given by RN. --00:[address] R[address]N. Patient transported to [place] by stretcher with tech. (00:51 Nov 06 2016). --00:51 Brisa Landa 00:45 11/06/16. --00:51 Brisa Landa 00:51 11/06/16. BP: 170/105. HR: 97. RR: 20. O2 saturation: 96% on room air. --00:51 Brisa Landa ( Provider aware of patient vitals.). --00:52 Brisa Landa 00:45 11/06/16. BP: 175/102 (regular adult cuff) taken on the left arm, while sitting. HR: 72. RR: 18. O2 saturation: 96% on room air. Pain level now: 10/16. --01:[address] R.NDuglas 00:55 11/06/16. BP: 161/102 (regular adult cuff) taken on the left arm, while sitting. HR: 82. RR: 18. O2 saturation: 95% on room air. Pain level now: 07/16. --01:[address] R.NDuglas 01:17 11/06/16. BP: 153/103. HR: 83. RR: 20. O2 saturation: 95% on room air. Pain level now: 06/18. --01:18 Brisa Landa The patient reports no complaints and he is resting quietly. GI / : Abdomen soft. SKIN: Skin is warm and dry. --01:26 Brisa Landa ( patient and spouse updated regarding plan of care). --01:27 Brisa Landa 02:11 11/06/16. BP: 150/94. HR: 74. RR: 20. O2 saturation: 97% on room air. --02:12 Brisa Landa 02:06 11/06/2016 IV Fluids IV NS Discontinued: bag #1 completed. Total amount infused: 1000 mL. IV patency established. IV site checked: no pain, redness, or swelling. IV flushed thoroughly. --02:16 Brisa Landa 02:23 11/06/2016 Started bag #1 1000 mL IV Fluids IV NS (Saline); at 250 mL/hr over 4 hour(s) via site #1 via IV pump. Allergies verified and confirmed 5 rights. IV patency established. IV site checked: no pain, redness, or swelling. IV flushed thoroughly pre- and post-medication administration. --02:23 Brisa Landa 03:22 11/06/2016 IV Fluids IV NS Continued: at the rate of 250 mL/hr. 800 mL remaining bag #1. IV patency established. IV site checked: no pain, redness, or swelling. IV flushed thoroughly. --03:22 Brisa Landa. DISPOSITION / DISCHARGE 02:54 11/06/16. BP: 150/90. HR: 81. RR: 20. O2 saturation: 96% on room air. Temp: 98.4 F (oral). Pain level now: 06/18. --02:57 Brisa Landa Admitted. Patient's personal items include: shirt, pants and shoes; items were transported with the patient. --02:57 Brisa Landa 03:42 11/06/16. BP: 155/90. HR: 80. RR: 20. O2 saturation: 98% on room air. Temp: 98.5 F (oral). Pain level now: 06/18. --03:43 Brisa Landa Report was given to a nurse via a phone call. Report included patient's care, treatment, medications, reviewed medication reconcilliation, and condition (including any recent changes or anticipated changes). All questions were answered. Report was acknowledged and care was transferred. (Kristian). --03:43 Brisa Landa Transported via stretcher by [employer]. --03:45 Brisa Landa 03:35 11/06/2016 Site #[address] upon admission; patent, no pain and no signs of infection; flushes easily. --03:45 Brisa Landa. Locked/Released at 11/06/2016 6:49 by Brisa Landa,
--- NOTE | 2016-11-06 02:13 | ED CLINICAL REPORT ---
Clinical Report - Physicians/Mid Levels [facility] [address] [place] [address] 11/05/2016 23:35 Patient: QUINCY CARTER Time Seen: 0001; initial patient contact. Arrived- By private vehicle. Historian- patient. HISTORY OF PRESENT ILLNESS Chief Complaint: ABDOMINAL PAIN. This started past several days and is still present. It was abrupt in onset and has been waxing/waning but is not gone now. It is described as sharp. No radiation. It is described as located in the epigastric area. At its maximum, severity described as moderate. When seen in the E.D., severity described as moderate. The patient has had nausea, vomiting and diarrhea. No additional abdominal pain. Similar symptoms previously: None. Recent medical care: Not recently seen/assessed. REVIEW OF SYSTEMS No black stools, hematemesis, bloody stools, fever or headache. No skin rash. All systems otherwise negative, except as recorded above. PAST HISTORY See nurses notes. Medications: QUEtiapine Fumarate Oral. Atenolol Oral. Allergies: Wellbutrin. SOCIAL HISTORY Never smoker. No alcohol use or drug use. No recent travel. Is a local resident. ADDITIONAL NOTES The nursing notes have been reviewed. PHYSICAL EXAM Vital Signs: 11/05/2016 23:41 HR: 79. RR: 20. O2 saturation: 95%. Temp: 98.9 F. Pain level now: 8/10. Blood pressure normal. Oxygen saturation normal. Appearance: Alert. Oriented X3. No acute distress. Eyes: Pupils equal, round and reactive to light. Eyes normal inspection. ENT: Ears normal. Nose normal. Pharynx normal. Neck: Normal inspection. Neck supple. CVS: Normal heart rate and rhythm. Heart sounds normal. Pulses normal. Respiratory: No respiratory distress. Breath sounds normal. Chest nontender. No rales, rhonchi or wheezes. Abdomen: Soft. Mild tenderness in the epigastric area. Abnormal bowel sounds: hyperactive. No organomegaly. No mass. No rebound tenderness or guarding. Skin: Skin warm and dry. Normal skin color. No rash. Normal skin turgor. Extremities: Extremities exhibit normal ROM. No lower extremity edema. LABS, X-RAYS, AND EKG Laboratory Tests: UA-Culture if indicated: (DEVIKA: 11/06/2016 00:00) ( [facility] 11/06/2016 00:21) Final results Test Result Flag Units (Reference) URINE COLOR YELLOW URINE APPEARANCE CLEAR URINE GLUCOSE NEGATIVE (NEGATIVE) URINE BILIRUBIN NEGATIVE (NEGATIVE) URINE KETONE NEGATIVE (NEGATIVE) URINE SPECIFIC GRAVITY >= 1.030 (1.010-1.030) URINE PH 6.0 (5.0-8.0) URINE PROTEIN TRACE (NEGATIVE) URINE UROBILINOGEN 0.2 EU/dL (0.2-1.0) URINE NITRITE NEGATIVE (NEGATIVE) URINE BLOOD TRACE-INTACT (NEGATIVE) URINE LEUK ESTERASE NEGATIVE (NEGATIVE) URINE RBC 1-3 rbc/hpf (0-1) URINE WBC 0-1 wbc/hpf (0-1) URINE EPITHELIAL CELLS NONE SEEN EPI/hpf (0-5) URINE BACTERIA NONE SEEN (NONE SEEN) URINE COMMENT CULT NOT INDICATED 2+ MUCUSURINE CULTURES ARE SET-UP BASED ON THE FOLLOWING CRITERIA:POSITIVE NITRITEPOSITIVE LEUKOCYTE ESTERASEGREATER THAN 10 WHITE BLOOD CELLSMODERATE (2+) OR GREATER BACTERIA CBC w Diff: (DEVIKA: 11/06/2016 00:00) ( [facility] 11/06/2016 00:33) Final results Test Result Flag Units (Reference) WHITE BLOOD COUNT 10.0 K/uL (4.5-11.5) RED BLOOD COUNT 4.84 M/uL (4.50-5.90) HEMOGLOBIN 15.1 gm/dL (13.5-17.5) HEMATOCRIT 44.0 % (41.0-53.0) MEAN CELL VOLUME 91 fL (80-100) MEAN CORPUSCULAR HGB 31 pg (26-34) MEAN CORPUSCULAR HGB CONC 34 g/dL (31-37) RED CELL DISTRIBUTION WIDTH 13.2 % (11.6-14.8) PLATELET COUNT 213 K/uL (150-400) NEUTROPHIL % 78.0 H % (50-75) LYMPH % 11.8 L % (25-40) MONO % 9.1 % (3-14) EOSINOPHIL % 0.3 % (0-4) BASOPHIL % 0.8 % (0-2) Lipase: (DEVIKA: 11/06/2016 00:00) ( [facility] 11/06/2016 00:42) Final results Test Result Flag Units (Reference) LIPASE 3843 H U/L (73-393) CMP: (DEVIKA: 11/06/2016 00:00) ( [facility] 11/06/2016 00:30) Final results Test Result Flag Units (Reference) GLUCOSE 124 H mg/dL (70-110) BUN 20 H mg/dL (7-18) CREATININE 1.1 mg/dL (0.6-1.3) Estimated GFR >60 mL/min Estimated GFR- >60 mL/min Note: Persistent reduction over 3 months in eGFR<60 mL/min/1.73 m2 defines CKD. Patients with eGFR values>=60 mL/min/1.73 m2 may also have CKD if evidence ofpersistent proteinuria. Additional information may be foundat www.kidney.org. SODIUM 141 mmol/L (136-145) POTASSIUM 3.6 mmol/L (3.5-5.1) CHLORIDE 104 mmol/L (98-107) CARBON DIOXIDE 25 mmol/L (21-32) CALCIUM 8.6 mg/dL (8.5-10.1) TOTAL PROTEIN 7.3 g/dL (6.4-8.2) ALBUMIN 4.1 g/dL (3.3-5.0) BILIRUBIN, TOTAL 1.8 H mg/dL (0.0-1.0) ALKALINE PHOSPHATASE 68 U/L (46-116) AST (SGOT) 31 U/L (15-37) ALT (SGPT) 50 U/L (12-78) Type & Rh: (DEVIKA: 11/06/2016 00:00) ( [facility] 11[facility]2016 00:43[facility] Final results Test Result Flag Units (Reference) PATIENT BLOOD TYPE O Positive . PROGRESS AND PROCEDURES Course of Care: the patient is a pleasant 51-year-old male with past medical history significant for Ronnie fundoplication and pancreatitis presented for a precaution of epigastric abdominal pain. Differential diagnosis at this time includes bronchitis, urinary tract infection, biliary colic, hepatitis, gastritis. Patient is agreeable to the treatment plan. Pain medication has been offered. The patient's workup was remarkable for the findings above. Patient with acute pancreatitis as well as CT scan evidence of pancreatitis. Liver enzymes are unremarkable. Do not fill patient has common bile duct obstruction. Patient has been improved while here in the emergency department. Because of the patient's elevated lipaseas well as findings on CT, feel the patient needs to be admitted for bowel rest and IV hydration. Vital signs here in the emergency Department have been reassuring. Patient is slightly hypertensive. Rest the patient's vital signs are unremarkable. Discussed the case with the hospitalist who will accept the patient. No further recommendations. Prior to patient's departure from the emergency department he is noted to be resting in bed and in no acute distress. Patient continues to be nontoxic. Did not feel patient needs to be admitted to the intensive care unit. Patient is a stable for patient. Disposition: Observation in Acute Care. Condition: stable. (Electronically signed by [facility] Montalvo Dr. 11/06/2016 3:26)
--- NOTE | 2016-11-06 02:13 | ED ORDER SUMMARY ---
..... Patient: QUINCY CARTER OrderSheet [facility] VisitID: [id number] [address] [place] [place] [address] 51y, M Registration Date/Time: 11/05/2016 ORDER SHEET Weight: 104.3 kg (stated) Allergies: Wellbutrin GENERAL ORDERS: CBC w Diff Urgent (00:11/06/2016 HSoule per protocol) (Ack 0:05 AMcQuoid ER Tech1) (0:50 HSoule) CMP Urgent (00:11/06/2016 HSoule per protocol) (Ack 0:05 AMcQuoid ER Tech1) (0:50 HSoule) UA-Culture if indicated Urgent (00:11/06/2016 HSoule per protocol) (Ack 0:05 AMcQuoid ER Tech1) (0:50 HSoule) Lipase Urgent (00:11/06/2016 Juju Nguyen) (Ack 0:17 AMcQuoid ER Tech1) (0:50 HSoule) Pulse oximeter (00:11/06/2016 Juju Nguyen) (Ack 0:17 AMcQuoid ER Tech1) (0:21 HSoule) CT Abd/Pel w Cont (No) (N/A) Urgent (00:23 11/06/2016 Juju Nguyen) (Ack 0:25 AMcQuoid ER Tech1) (1:21 GUnger) Type & Rh Urgent (00:24 11/06/2016 Juju Nguyen) (Ack 0:25 AMcQuoid ER Tech1) (0:51 HSoule) MEDICATION ORDERS: GI Cocktail WHITE PO 30 mL (NOW) (00:11/06/2016 Juju Nguyen) (Ack 0:13 HSoule) (0:22 HSoule) IV FLUIDS: IV Saline Lock (00:11/06/2016 HSoule per protocol) (0:01 HSoule) IV NS : initial bolus 1000 mL (1000 mL/hr), then none - for X1 (NOW) (00:11/06/2016 Juju Nguyen) (Ack 0:13 HSoule) (0:21 HSoule) Zofran IV 4 mg (NOW) (00:11 11/06/2016 Juju Nguyen) (Ack 0:13 HSoule) (0:21 HSoule) Morphine IV 4 mg (HIGH ALERT MEDICATION, NOW) (00:11 11/06/2016 Juju Nguyen) (Ack 0:13 HSoule) (0:22 HSoule) Morphine IV 8 mg (HIGH ALERT MEDICATION, NOW) (00:39 11/06/2016 Juju Nguyen) (Ack 0:42 JSanders R.N.) (0:51 JSanders R.N.) IV NS : initial bolus none -, then 250 mL/hr for X4 (NOW) (02:16 11/06/2016 Juju Nguyen) (Ack 2:17 HSoule) (2:23 HSoule) ORDER SHEET NOTES: [Electronically signed by [facility] Montalvo Dr. (03:26 11/06/2016)] [Electronically signed by Brisa Landa (06:49 11/06/2016)] [Electronically locked/signed by Brisa Landa (06:49 11/06/2016)]
--- NOTE | 2016-11-06 02:13 | ED CLINICAL REPORT ---
Clinical Report - Physicians/Mid Levels [facility] [address] [place] [address] 11/05/2016 23:35 Patient: QUINCY CARTER Time Seen: 0001; initial patient contact. Arrived- By private vehicle. Historian- patient. HISTORY OF PRESENT ILLNESS Chief Complaint: ABDOMINAL PAIN. This started past several days and is still present. It was abrupt in onset and has been waxing/waning but is not gone now. It is described as sharp. No radiation. It is described as located in the epigastric area. At its maximum, severity described as moderate. When seen in the E.D., severity described as moderate. The patient has had nausea, vomiting and diarrhea. No additional abdominal pain. Similar symptoms previously: None. Recent medical care: Not recently seen/assessed. REVIEW OF SYSTEMS No black stools, hematemesis, bloody stools, fever or headache. No skin rash. All systems otherwise negative, except as recorded above. PAST HISTORY See nurses notes. Medications: QUEtiapine Fumarate Oral. Atenolol Oral. Allergies: Wellbutrin. SOCIAL HISTORY Never smoker. No alcohol use or drug use. No recent travel. Is a local resident. ADDITIONAL NOTES The nursing notes have been reviewed. PHYSICAL EXAM Vital Signs: 11/05/2016 23:41 HR: 79. RR: 20. O2 saturation: 95%. Temp: 98.9 F. Pain level now: 8/10. Blood pressure normal. Oxygen saturation normal. Appearance: Alert. Oriented X3. No acute distress. Eyes: Pupils equal, round and reactive to light. Eyes normal inspection. ENT: Ears normal. Nose normal. Pharynx normal. Neck: Normal inspection. Neck supple. CVS: Normal heart rate and rhythm. Heart sounds normal. Pulses normal. Respiratory: No respiratory distress. Breath sounds normal. Chest nontender. No rales, rhonchi or wheezes. Abdomen: Soft. Mild tenderness in the epigastric area. Abnormal bowel sounds: hyperactive. No organomegaly. No mass. No rebound tenderness or guarding. Skin: Skin warm and dry. Normal skin color. No rash. Normal skin turgor. Extremities: Extremities exhibit normal ROM. No lower extremity edema. LABS, X-RAYS, AND EKG Laboratory Tests: UA-Culture if indicated: (DEVIKA: 11/06/2016 00:00) ( [facility] 11/06/2016 00:21) Final results Test Result Flag Units (Reference) URINE COLOR YELLOW URINE APPEARANCE CLEAR URINE GLUCOSE NEGATIVE (NEGATIVE) URINE BILIRUBIN NEGATIVE (NEGATIVE) URINE KETONE NEGATIVE (NEGATIVE) URINE SPECIFIC GRAVITY >= 1.030 (1.010-1.030) URINE PH 6.0 (5.0-8.0) URINE PROTEIN TRACE (NEGATIVE) URINE UROBILINOGEN 0.2 EU/dL (0.2-1.0) URINE NITRITE NEGATIVE (NEGATIVE) URINE BLOOD TRACE-INTACT (NEGATIVE) URINE LEUK ESTERASE NEGATIVE (NEGATIVE) URINE RBC 1-3 rbc/hpf (0-1) URINE WBC 0-1 wbc/hpf (0-1) URINE EPITHELIAL CELLS NONE SEEN EPI/hpf (0-5) URINE BACTERIA NONE SEEN (NONE SEEN) URINE COMMENT CULT NOT INDICATED 2+ MUCUSURINE CULTURES ARE SET-UP BASED ON THE FOLLOWING CRITERIA:POSITIVE NITRITEPOSITIVE LEUKOCYTE ESTERASEGREATER THAN 10 WHITE BLOOD CELLSMODERATE (2+) OR GREATER BACTERIA CBC w Diff: (DEVIKA: 11/06/2016 00:00) ( [facility] 11/06/2016 00:33) Final results Test Result Flag Units (Reference) WHITE BLOOD COUNT 10.0 K/uL (4.5-11.5) RED BLOOD COUNT 4.84 M/uL (4.50-5.90) HEMOGLOBIN 15.1 gm/dL (13.5-17.5) HEMATOCRIT 44.0 % (41.0-53.0) MEAN CELL VOLUME 91 fL (80-100) MEAN CORPUSCULAR HGB 31 pg (26-34) MEAN CORPUSCULAR HGB CONC 34 g/dL (31-37) RED CELL DISTRIBUTION WIDTH 13.2 % (11.6-14.8) PLATELET COUNT 213 K/uL (150-400) NEUTROPHIL % 78.0 H % (50-75) LYMPH % 11.8 L % (25-40) MONO % 9.1 % (3-14) EOSINOPHIL % 0.3 % (0-4) BASOPHIL % 0.8 % (0-2) Lipase: (DEVIKA: 11/06/2016 00:00) ( [facility] [place] 11/06/2016 00:42) Final results Test Result Flag Units (Reference) LIPASE 3843 H U/L (73-393) CMP: (DEVIKA: 11/06/2016 00:00) ( [facility] 11/06/2016 00:30) Final results Test Result Flag Units (Reference) GLUCOSE 124 H mg/dL (70-110) BUN 20 H mg/dL (7-18) CREATININE 1.1 mg/dL (0.6-1.3) Estimated GFR >60 mL/min Estimated GFR- >60 mL/min Note: Persistent reduction over 3 months in eGFR<60 mL/min/1.73 m2 defines CKD. Patients with eGFR values>=60 mL/min/1.73 m2 may also have CKD if evidence ofpersistent proteinuria. Additional information may be foundat www.kidney.org. SODIUM 141 mmol/L (136-145) POTASSIUM 3.6 mmol/L (3.5-5.1) CHLORIDE 104 mmol/L (98-107) CARBON DIOXIDE 25 mmol/L (21-32) CALCIUM 8.6 mg/dL (8.5-10.1) TOTAL PROTEIN 7.3 g/dL (6.4-8.2) ALBUMIN 4.1 g/dL (3.3-5.0) BILIRUBIN, TOTAL 1.8 H mg/dL (0.0-1.0) ALKALINE PHOSPHATASE 68 U/L (46-116) AST (SGOT) 31 U/L (15-37) ALT (SGPT) 50 U/L (12-78) Type & Rh: (DEVIKA: 11/06/2016 00:00) ( [facility] 11/06/2016 00:43) Final results Test Result Flag Units (Reference) PATIENT BLOOD TYPE O Positive . PROGRESS AND PROCEDURES Course of Care: the patient is a pleasant 51-year-old male with past medical history significant for Ronnie fundoplication and pancreatitis presented for a precaution of epigastric abdominal pain. Differential diagnosis at this time includes bronchitis, urinary tract infection, biliary colic, hepatitis, gastritis. Patient is agreeable to the treatment plan. Pain medication has been offered. The patient's workup was remarkable for the findings above. Patient with acute pancreatitis as well as CT scan evidence of pancreatitis. Liver enzymes are unremarkable. Do not fill patient has common bile duct obstruction. Patient has been improved while here in the emergency department. Because of the patient's elevated lipaseas well as findings on CT, feel the patient needs to be admitted for bowel rest and IV hydration. Vital signs here in the emergency Department have been reassuring. Patient is slightly hypertensive. Rest the patient's vital signs are unremarkable. Discussed the case with the hospitalist who will accept the patient. No further recommendations. Prior to patient's departure from the emergency department he is noted to be resting in bed and in no acute distress. Patient continues to be nontoxic. Did not feel patient needs to be admitted to the intensive care unit. Patient is a stable for patient. Disposition: Observation in Acute Care. Condition: stable. (Electronically signed by [facility] Montalvo Dr. 11/06/2016 3:26)
--- NOTE | 2016-11-06 02:13 | ED ORDER SUMMARY ---
..... Patient: QUINCY CARTER OrderSheet [facility] VisitID: [id number] [address] [place] [address] 51y, M Registration Date/Time: 11/05/2016 ORDER SHEET Weight: 104.3 kg (stated) Allergies: Wellbutrin GENERAL ORDERS: CBC w Diff Urgent (00:11/06/2016 HSoule per protocol) (Ack 0:05 AMcQuoid ER Tech1) (0:50 HSoule) CMP Urgent (00:11/06/2016 HSoule per protocol) (Ack 0:05 AMcQuoid ER Tech1) (0:50 HSoule) UA-Culture if indicated Urgent (00:11/06/2016 HSoule per protocol) (Ack 0:05 AMcQuoid ER Tech1) (0:50 HSoule) Lipase Urgent (00:11/06/2016 Juju Nguyen) (Ack 0:17 AMcQuoid ER Tech1) (0:50 HSoule) Pulse oximeter (00:11/06/2016 Juju Nguyen) (Ack 0:17 AMcQuoid ER Tech1) (0:21 HSoule) CT Abd/Pel w Cont (No) (N/A) Urgent (00:23 11/06/2016 Juju Nguyen) (Ack 0:25 AMcQuoid ER Tech1) (1:21 GUnger) Type & Rh Urgent (00:24 11/06/2016 Juju Nguyen) (Ack 0:25 AMcQuoid ER Tech1) (0:51 HSoule) MEDICATION ORDERS: GI Cocktail WHITE PO 30 mL (NOW) (00:11/06/2016 Juju Nguyen) (Ack 0:13 HSoule) (0:22 HSoule) IV FLUIDS: IV Saline Lock (00:11/06/2016 HSoule per protocol) (0:01 HSoule) IV NS : initial bolus 1000 mL (1000 mL/hr), then none - for X1 (NOW) (00:11/06/2016 Juju Nguyen) (Ack 0:13 HSoule) (0:21 HSoule) Zofran IV 4 mg (NOW) (00:11 11/06/2016 Juju Nguyen) (Ack 0:13 HSoule) (0:21 HSoule) Morphine IV 4 mg (HIGH ALERT MEDICATION, NOW) (00:11 11/06/2016 Juju Nguyen) (Ack 0:13 HSoule) (0:22 HSoule) Morphine IV 8 mg (HIGH ALERT MEDICATION, NOW) (00:39 11/06/2016 Juju Nguyen) (Ack 0:42 JSanders R.N.) (0:51 JSanders R.N.) IV NS : initial bolus none -, then 250 mL/hr for X4 (NOW) (02:16 11/06/2016 Juju Nguyen) (Ack 2:17 HSoule) (2:23 HSoule) ORDER SHEET NOTES: [Electronically signed by [facility] Montalvo Dr. (03:26 11/06/2016)] [Electronically signed by Brisa Landa (06:49 11/06/2016)] [Electronically locked/signed by Brisa Landa (06:49 11/06/2016)]
--- NOTE | 2016-11-06 03:26 | History & Physical Report ---
History Chief Complaint Abdominal pain History of Present Illness This is a 51-year-old white male started to have nausea and vomiting and we can go and then he developed epigastric pain progressively became worse to the severity of 8 out of 10 patient also developed loose stool in the last few days up to 8 times a day no fever or chills patient did not have any recent travel Patient History 1. Hypertension 2. Alcohol abuse 3. Generalized anxiety disorder Social History Patient is has no kids lives with his girlfriend. Smoking: None, illicit drugs: None, alcohol: Patient used to be a heavy drinker but strongly denies any heavy drinking now states that he drinks socially 2-4 beers a week usually on weekends last alcohol consumption was last Tuesday it was 2 beers Family History Relation not specified for: Breast Cancer Hypertension Medications and Allergies Medications Home medications: Atenolol dosage is not known Current Medications Sig/Stormy Start time Last Medication Dose Route Stop Time Status Admin Pantoprazole Sodium 40 MG DAILY@0600 / 0600 UNV IV Dextrose/Sodium 1,000 ML ASDIRECTED 11/06 0300 UNV Chloride IV Hydromorphone HCl 1 MG Q1H PRN 11/06 0300 UNV IV Ondansetron HCl 4 MG Q6H PRN 11/06 0300 UNV IV Allergies Coded Allergies: Lisinopril (Severe, PALPITATIONS 11/06/16) Bupropion (From WELLBUTRIN) (Severe, HEART STARTS RACING, HARD TO BREATH ) Diazepam (Severe, Nausea & ANXIETY 01/06/13) Reconcile Medications Scheduled Medications Amlodipine Besylate (Norvasc 5 MG) 5 MG TAB 1 TAB PO DAILY Clonidine HCl (Clonidine HCl 0.2 MG) 0.2 MG TAB 0.2 MG PO BID Review of Systems Constitutional Malaise. Denies: Fever, Chills. ENT Denies: Nasal Congestion, Throat Pain. Respiratory Denies: Cough, SOB w/exertion, Sputum. Cardiovascular Palpitations. Denies: Chest Pain. Gastrointestinal Nausea, Vomiting, Abdominal Pain, Diarrhea. Genitourinary Denies: Dysuria, Frequency, Incontinence. Musculoskeletal Denies: Neck Pain, Back Pain, Foot Pain. Neurological Denies: Weakness, Numbness. Physical Exam General Appearance Alert, Oriented X3, No acute distress HEENT Normal exam Lungs Clear to auscultation Neck Supple, No JVD, 2+ carotid pulse wo bruit Cardiovascular Regular rate and rhythm, Normal S1 and S2, No murmurs, gallops, rubs Abdomen Soft, tenderness in Epigastrium, distended, BS hypoactive Extremities No cyanosis, No edema, Normal pulses Skin No Rashes, No Significant Lesions Neurological Normal tone, Reflexes 2+ and equal, Cranial nerves intact, Strength 5/5 x4 ext's Psych/Mental Status Mental status normal, Mood normal LAB Results Laboratory Tests 11/06 11/06 0000 0000 Chemistry Plasma Sodium (136 - 145 mmol/L) 141 Plasma Potassium (3.5 - 5.1 mmol/L) 3.6 Plasma Chloride (98 - 107 mmol/L) 104 CO2 (Enzymatic) (21 - 32 mmol/L) 25 BUN (7 - 18 mg/dL) 20 Creatinine (0.6 - 1.3 mg/dL) 1.1 Est GFR ( Amer) (mL/min) >60 Est GFR (Non-Af Amer) (mL/min) >60 Glucose (70 - 110 mg/dL) 124 Plasma Calcium (8.5 - 10.1 mg/dL) 8.6 Total Bilirubin (0.0 - 1.0 mg/dL) 1.8 AST (15 - 37 U/L) 31 ALT (12 - 78 U/L) 50 Alkaline Phosphatase (46 - 116 U/L) 68 Total Protein (6.4 - 8.2 g/dL) 7.3 Albumin (3.3 - 5.0 g/dL) 4.1 Lipase (73 - 393 U/L) 3843 Hematology WBC (4.5 - 11.5 K/uL) 10.0 RBC (4.50 - 5.90 M/uL) 4.84 Hgb (13.5 - 17.5 gm/dL) 15.1 Hct (41.0 - 53.0 %) 44.0 MCV (80 - 100 fL) 91 MCH (26 - 34 pg) 31 RDW (11.6 - 14.8 %) 13.2 Neut % (Auto) (50 - 75 %) 78.0 Lymph % (Auto) (25 - 40 %) 11.8 [place] % (Auto) (3 - 14 %) 9.1 Eos % (Auto) (0 - 4 %) 0.3 Baso % (Auto) (0 - 2 %) 0.8 Plt Count, EDTA (150 - 400 K/uL) 213 PUBS MCHC (31 - 37 g/dL) 34 Urines Urine Color YELLOW Urine Appearance CLEAR Urine pH (5.0 - 8.0) 6.0 Ur Specific [place] (1.010 - 1.030) >= 1.030 Urine Protein (NEGATIVE) TRACE Urine Ketones (NEGATIVE) NEGATIVE Urine Blood (NEGATIVE) TRACE-INTACT Urine Nitrite (NEGATIVE) NEGATIVE Urine Bilirubin (NEGATIVE) NEGATIVE Urine Urobilinogen (0.2 - 1.0 EU/dL) 0.2 Ur Leukocyte Esterase (NEGATIVE) NEGATIVE Urine RBC (0 - 1 rbc/hpf) 1-3 Urine WBC (0 - 1 wbc/hpf) 0-1 Ur Epithelial Cells (0 - 5 EPI/hpf) NONE SEEN Urine Bacteria (NONE SEEN) NONE SEEN Urine Glucose (NEGATIVE) NEGATIVE Urine Comment CULT NOT INDICATED Assessment and Plan Problem List 1. Acute pancreatitis Plan NPO, IV hydration, repeat lipase and Amylase, IV pain management consider Gall bladder U/S, check lipid 2. Hypertension Status Chronic Onset Date Unknown Plan contorlled will monitor
--- NOTE | 2016-11-06 06:02 | DIAGNOSTIC IMAGING REPORT ---
PROCEDURE: CT ABD/PELVIS WITH CONTRAST INDICATION: Abdominal pain. Nausea and vomiting. Elevated lipase (3143). History pancreatitis, appendectomy, cholecystectomy, and Ronnie plasty. TECHNIQUE: 125 ml of Isovue 300 were injected intravenously and axial images were obtained of the entire abdomen and pelvis with sagittal and coronal reformations. Preliminary report provided by Duane Peralta ([facility]). COMPARISON: Compared CT abdomen and pelvis on 08/20/2012. FINDINGS: ABDOMEN: There are moderate inflammatory changes surrounding the pancreas and retroperitoneal structures. No evidence of free fluid Cholecystectomy (surgical clips). Common duct is normal (10 mm). No evidence of intrahepatic ductal dilation. Liver, spleen, kidneys, and aorta are normal. Mild generalized gaseous distention of the small bowel. Bowel pattern is otherwise normal, with mobile cecum located in right upper abdomen. Mild to moderate degenerative changes of the lumbar spine PELVIS: Pelvic structures are normal. No evidence of free fluid. IMPRESSION: 1. Moderate inflammatory changes of the pancreas and retroperitoneum compatible with pancreatitis. 2. Mild gaseous distention of the small bowel suggests ileus. 3. Status post cholecystectomy. 4. Otherwise negative abdomen and pelvis. All CT scans at this facility use dose modulation, iterative reconstruction, and/or weight-based dosing when appropriate to reduce radiation dose to as low as reasonably achievable.
--- NOTE | 2016-11-06 06:48 | Progress Note ---
Subjective General Note Date: November 06, 2016 Admission Date: November 06, 2016 Hospital Day: 1 PCP: Ross Delatorre M.D. Status: Inpatient, ACU Advanced Directive: NO CODE Room: 204-A Admission History: The patient is a 51-year-old white male with a significant past make a history of hypertension, generalized anxiety disorder, alcohol abuse/dependence, who presented to [facility] emergency department on the day of admission secondary to complaints of abdominal pain nausea, and vomiting. [facility] ER evaluation was consistent with acute pancreatitis and hypertension. Secondary to the above, the patient was admitted by Colin Wagner M.D. for further evaluation and treatment. For other history present illness, past medical history, family history, social history, review of systems, and admission physical examination please see the patient's history and physical examination and ER visit note in the patient's medical record. Subjective: The patient states he has persistent abdominal pain and nausea. Symptoms are improved. Patient requests: None Medications and Allergies Medications Current Medications Sig/Stormy Start time Last Medication Dose Route Stop Time Status Admin Metoprolol Tartrate 5 MG BID 11/06 1300 AC IV Pantoprazole Sodium 40 MG DAILY@0600 11/06 0600 AC 11/06 IV 0513 Dextrose/Sodium 1,000 ML ASDIRECTED 11/06 0300 AC 11/06 Chloride IV 0357 Hydromorphone HCl 1 MG Q1H PRN 11/06 0300 AC 11/06 IV 0513 Ondansetron HCl 4 MG Q6H PRN 11/06 0300 AC 11/06 IV 0513 Allergies Coded Allergies: Lisinopril (Severe, PALPITATIONS 11/06/16) Bupropion (From WELLBUTRIN) (Severe, HEART STARTS RACING, HARD TO BREATH ) Diazepam (Severe, Nausea & ANXIETY 01/06/13) Physical Exam Vital Signs / I&Os Vital Signs Date Time Temp Pulse Resp B/P Pulse O2 O2 Flow FiO2 Ox Delivery Rate 11/06 0644 98.1 63 16 146/100 95 Room Air 11/06 0418 98.2 69 16 147/104 95 Room Air General Appearance Alert, Oriented X3, Cooperative, No acute distress Lungs Clear to auscultation, Normal air movement Cardiovascular Regular rate and rhythm, Normal S1 and S2 Abdomen Normal bowel sounds, Soft, epigastric tenderness. Extremities No cyanosis, No clubbing Neurological Cranial nerves intact, No lateralizing signs Psych/Mental Status Mental status normal, Mood normal LAB Results Laboratory Tests 11/06 11/06 11/06 0555 0000 0000 Chemistry Plasma Sodium (136 - 145 mmol/L) 141 Plasma Potassium (3.5 - 5.1 mmol/L) 3.6 Plasma Chloride (98 - 107 mmol/L) 104 CO2 (Enzymatic) (21 - 32 mmol/L) 25 BUN (7 - 18 mg/dL) 20 Creatinine (0.6 - 1.3 mg/dL) 1.1 Est GFR ( Amer) (mL/min) >60 Est GFR (Non-Af Amer) (mL/min) >60 Glucose (70 - 110 mg/dL) 124 Plasma Calcium (8.5 - 10.1 mg/dL) 8.6 Total Bilirubin (0.0 - 1.0 mg/dL) 1.8 AST (15 - 37 U/L) 31 ALT (12 - 78 U/L) 50 Alkaline Phosphatase (46 - 116 U/L) 68 Total Protein (6.4 - 8.2 g/dL) 7.3 Albumin (3.3 - 5.0 g/dL) 4.1 Triglycerides Pending Cholesterol Pending LDL Cholesterol, Calc Pending HDL Cholesterol Pending LDL/HDL Ratio Pending Cholesterol/HDL Ratio Pending Coronary Risk Interp Pending Lipase (73 - 393 U/L) 3843 Hematology WBC (4.5 - 11.5 K/uL) 10.0 RBC (4.50 - 5.90 M/uL) 4.84 Hgb (13.5 - 17.5 gm/dL) 15.1 Hct (41.0 - 53.0 %) 44.0 MCV (80 - 100 fL) 91 MCH (26 - 34 pg) 31 RDW (11.6 - 14.8 %) 13.2 Neut % (Auto) (50 - 75 %) 78.0 Lymph % (Auto) (25 - 40 %) 11.8 [place] % (Auto) (3 - 14 %) 9.1 Eos % (Auto) (0 - 4 %) 0.3 Baso % (Auto) (0 - 2 %) 0.8 Plt Count, EDTA (150 - 400 K/uL) 213 PUBS MCHC (31 - 37 g/dL) 34 Urines Urine Color YELLOW Urine Appearance CLEAR Urine pH (5.0 - 8.0) 6.0 Ur Specific [place] (1.010 - 1.030) >= 1.030 Urine Protein (NEGATIVE) TRACE Urine Ketones (NEGATIVE) NEGATIVE Urine Blood (NEGATIVE) TRACE-INTACT Urine Nitrite (NEGATIVE) NEGATIVE Urine Bilirubin (NEGATIVE) NEGATIVE Urine Urobilinogen (0.2 - 1.0 EU/dL) 0.2 Ur Leukocyte Esterase (NEGATIVE) NEGATIVE Urine RBC (0 - 1 rbc/hpf) 1-3 Urine WBC (0 - 1 wbc/hpf) 0-1 Ur Epithelial Cells (0 - 5 EPI/hpf) NONE SEEN Urine Bacteria (NONE SEEN) NONE SEEN Urine Glucose (NEGATIVE) NEGATIVE Urine Comment CULT NOT INDICATED Imaging CT Scan Abdomen/Pelvis IMPRESSION: 1. Moderate inflammatory changes of the pancreas and retroperitoneum compatible with pancreatitis. 2. Mild gaseous distention of the small bowel suggests ileus. 3. Status post cholecystectomy. 4. Otherwise negative abdomen and pelvis. Dictated by: KEI MAIN MD D: TAL;11/06/16 0602 Assessment and Plan Problem List 1. Pancreatitis Plan -Patient presents with findings of acute pancreatitis -Lipid profile unremarkable -CT scan shows findings of pancreatitis without necrosis -Continue IV fluids, pain management, antiemetics -Monitor 2. Hypertension Status Chronic Onset Date Unknown Plan -Patient with findings of elevated blood pressure -Lopressor 5 mg IV every 3 hours -Clonidine 0.1 mg by mouth every 4 hours when necessary -Nitroglycerin paste 1 inch topically every 6 hours -Monitor Current status: Fair, unstable Anticipated discharge date: Anticipated discharge 3-4 days Anticipated discharge placement: Home Patient care time: Time in chart review, patient interview, physical exam, CPOE, and care documentation: 25 mins Visit to patient today: 1 Complexity of care: Moderate DVT prophylaxis: Lovenox E&M Codes Rounding: Inpt-Moderate/[id number]
--- NOTE | 2016-11-06 06:49 | ED MAR SUMMARY ---
..... Medication Administration Record [facility] [address] [place] [address] Patient: QUINCY CARTER Visit ID: [id number] 51y, M Weight: 104.3 kg Height/Length: 72 in BMI: 31.2 ALLERGIES: Wellbutrin Start 00:11/06/2016 Brisa Landa,, Stop 02:06 11/06/2016 Brisa Landa, Medication Administered: IV NS (SALINE), Dose: IV Fluids over 1 hour(s), Rate: 1000 mL/hr, Dispensed: 1000 mL bag, Site: #1 right AC. Medication Ordered: IV NS : initial bolus 1000 mL (1000 mL/hr), then none - for X1 (NOW). Given 00:11/06/2016 Brisa Landa, Medication Administered: ZOFRAN [IVP] (ONDANSETRON HCL), Dose: 4 mg IVP over 2 minute(s), Site: #1 right AC. Medication Ordered: Zofran IV 4 mg (NOW). Given 00:11/06/2016 Brisa Landa, Medication Administered: GI COCKTAIL WHITE [PO] (SIMETHICONE), Dose: 30 mL Oral Suspension PO. Medication Ordered: GI Cocktail WHITE PO 30 mL (NOW). Given 00:11/06/2016 Brisa Landa, Medication Administered: MORPHINE [IVP], Dose: 4 mg IVP over 2 minute(s), Site: #1 right AC. Medication Ordered: Morphine IV 4 mg (HIGH ALERT MEDICATION, NOW). Given 00:11/06/[address] R[address]N. Medication Administered: MORPHINE [IVP], Dose: 8 mg IVP over 4 minute(s), Site: #1 right AC. Medication Ordered: Morphine IV 8 mg (HIGH ALERT MEDICATION, NOW). Start 02:11/06/2016 Brisa Landa,, Continued Upon Disposition 03:11/06/2016 Brisa Landa, Medication Administered: IV NS (SALINE), Dose: IV Fluids over 4 hour(s), Rate: 250 mL/hr, Dispensed: 1000 mL bag, Site: #1 right AC. Medication Ordered: IV NS : initial bolus none -, then 250 mL/hr for X4 (NOW).
--- NOTE | 2016-11-06 06:49 | ED MED RECONCILIATION SUMMARY ---
Patient: QUINCY CARTER Medication Reconciliation Report [facility] VisitID: [id number] [address] [place] [address] 51y, M Registration Date/Time: 11/05/2016 Weight: 104.3 kg Height/Length: 72 in. BMI: 31.2 ALLERGIES: Wellbutrin The patient's Home Medications are listed below: THE FOLLOWING MEDICATIONS NEED TO BE RECONCILED: Atenolol Oral QUEtiapine Fumarate Oral The source(s) of the original Home Medication information: patient The following Medications were given to the patient in the Emergency Department: IV NS IV Fluids bolus 0, then 1000 mL/hr, administered: 11/06/2016 12:21:00 AM Zofran [IVP] IVP 4 mg, administered: 11/06/2016 12:21:00 AM GI COCKTAIL WHITE [PO] PO 30 mL, administered: 11/06/2016 12:22:00 AM Morphine [IVP] IVP 4 mg, administered: 11/06/2016 12:22:00 AM Morphine [IVP] IVP 8 mg, administered: 11/06/2016 12:51:00 AM IV NS IV Fluids bolus 0, then 250 mL/hr, administered: 11/06/2016 2:23:00 AM The following Medications were prescribed to the patient: None.
--- NOTE | 2016-11-06 06:49 | ED MAR SUMMARY ---
..... Medication Administration Record [facility] [address] [place] [address] Patient: QUINCY CARTER Visit ID: [id number] 51y, M Weight: 104.3 kg Height/Length: 72 in BMI: 31.2 ALLERGIES: Wellbutrin Start 00:11/06/2016 Brisa Landa,, Stop 02:06 11/06/2016 Brisa Landa, Medication Administered: IV NS (SALINE), Dose: IV Fluids over 1 hour(s), Rate: 1000 mL/hr, Dispensed: 1000 mL bag, Site: #1 right AC. Medication Ordered: IV NS : initial bolus 1000 mL (1000 mL/hr), then none - for X1 (NOW). Given 00:11/06/2016 Brisa Landa, Medication Administered: ZOFRAN [IVP] (ONDANSETRON HCL), Dose: 4 mg IVP over 2 minute(s), Site: #1 right AC. Medication Ordered: Zofran IV 4 mg (NOW). Given 00:11/06/2016 Brisa Landa, Medication Administered: GI COCKTAIL WHITE [PO] (SIMETHICONE), Dose: 30 mL Oral Suspension PO. Medication Ordered: GI Cocktail WHITE PO 30 mL (NOW). Given 00:11/06/2016 Brisa Landa, Medication Administered: MORPHINE [IVP], Dose: 4 mg IVP over 2 minute(s), Site: #1 right AC. Medication Ordered: Morphine IV 4 mg (HIGH ALERT MEDICATION, NOW). Given 00:11/06/[address] R.N. Medication Administered: MORPHINE [IVP], Dose: 8 mg IVP over 4 minute(s), Site: #1 right AC. Medication Ordered: Morphine IV 8 mg (HIGH ALERT MEDICATION, NOW). Start 02:11/06/2016 Brisa Landa,, Continued Upon Disposition 03:11/06/2016 Brisa Landa, Medication Administered: IV NS (SALINE), Dose: IV Fluids over 4 hour(s), Rate: 250 mL/hr, Dispensed: 1000 mL bag, Site: #1 right AC. Medication Ordered: IV NS : initial bolus none -, then 250 mL/hr for X4 (NOW).
--- NOTE | 2016-11-06 06:49 | ED MED RECONCILIATION SUMMARY ---
Patient: QUINCY CARTER Medication Reconciliation Report [facility] VisitID: [id number] [address] [place] [address] 51y, M Registration Date/Time: 11/05/2016 Weight: 104.3 kg Height/Length: 72 in. BMI: 31.2 ALLERGIES: Wellbutrin The patient's Home Medications are listed below: THE FOLLOWING MEDICATIONS NEED TO BE RECONCILED: Atenolol Oral QUEtiapine Fumarate Oral The source(s) of the original Home Medication information: patient The following Medications were given to the patient in the Emergency Department: IV NS IV Fluids bolus 0, then 1000 mL/hr, administered: 11/06/2016 12:21:00 AM Zofran [IVP] IVP 4 mg, administered: 11/06/2016 12:21:00 AM GI COCKTAIL WHITE [PO] PO 30 mL, administered: 11/06/2016 12:22:00 AM Morphine [IVP] IVP 4 mg, administered: 11/06/2016 12:22:00 AM Morphine [IVP] IVP 8 mg, administered: 11/06/2016 12:51:00 AM IV NS IV Fluids bolus 0, then 250 mL/hr, administered: 11/06/2016 2:23:00 AM The following Medications were prescribed to the patient: None.
[2016-11-07 02:33] VITALS: BP 156/93
[2016-11-07 07:22] VITALS: BP 133/76
--- NOTE | 2016-11-07 07:23 | Progress Note ---
Subjective General Note Date: November 07, 2016 Admission Date: November 06, 2016 Hospital Day: 2 PCP: Ross Delatorre M.D. Status: Inpatient, ACU Advanced Directive: NO CODE Room: 204-A Admission History: The patient is a 51-year-old white male with a significant past make a history of hypertension, generalized anxiety disorder, alcohol abuse/dependence, who presented to [facility] emergency department on the day of admission secondary to complaints of abdominal pain nausea, and vomiting. [facility] ER evaluation was consistent with acute pancreatitis and hypertension. Secondary to the above, the patient was admitted by Colin Wagner M.D. for further evaluation and treatment. For other history present illness, past medical history, family history, social history, review of systems, and admission physical examination please see the patient's history and physical examination and ER visit note in the patient's medical record. Subjective: The patient states status improved today. Decrease abdominal pain. No nausea or vomiting. Patient requests: None Medications and Allergies Medications Current Medications Sig/Stormy Start time Last Medication Dose Route Stop Time Status Admin Enoxaparin Sodium 40 MG DAILY 11/06 1700 AC 11/07 SC 0841 Clonidine HCl 0.1 MG Q4H PRN 11/06 1345 AC 11/06 PO 1532 Famotidine/Sodium 50 ML BID 11/06 1345 AC 11/07 Chloride IV 0841 Nitroglycerin 1 GM Q6HR 11/06 1345 AC 11/07 TOP 1215 Promethazine HCl 6.25 MG Q6H PRN 11/06 1345 AC 11/06 IV 2208 Metoprolol Tartrate 5 MG BID 11/06 1300 AC 11/07 IV 0841 Dextrose/Sodium 1,000 ML ASDIRECTED 11/06 0300 AC 11/07 Chloride IV 0558 Hydromorphone HCl 1 MG Q1H PRN 11/06 0300 AC 11/06 IV 2208 Ondansetron HCl 4 MG Q6H PRN 11/06 0300 AC 11/06 IV 1855 Allergies Coded Allergies: Lisinopril (Severe, PALPITATIONS 11/06/16) Bupropion (From WELLBUTRIN) (Severe, HEART STARTS RACING, HARD TO BREATH ) Diazepam (Severe, Nausea & ANXIETY 01/06/13) Physical Exam Vital Signs / I&Os Vital Signs Date Time Temp Pulse Resp B/P Pulse O2 O2 Flow FiO2 Ox Delivery Rate 11/07 0233 98.6 72 15 156/93 95 Room Air 11/07 0001 Room Air 11/06 2238 98.8 69 16 147/94 94 Room Air 11/06 2048 98.2 74 16 144/98 95 Room Air 11/06 1800 98.4 79 16 146/107 96 Room Air 11/06 1630 Room Air 11/06 1448 98.1 62 16 154/107 97 Room Air 11/06 1143 98.1 65 16 155/110 96 Room Air I&O 11/07 0000 11/06 1600 11/06 0800 Intake Total 1889 0 168 Output Total 450 275 300 Balance 1439 -275 -132 General Appearance Alert, Oriented X3, Cooperative, No acute distress Lungs Clear to auscultation, Normal air movement Cardiovascular Regular rate and rhythm, Normal S1 and S2, No murmurs, gallops, rubs Abdomen Normal bowel sounds, Soft, minimal epigastric tenderness Extremities No cyanosis, No clubbing, No edema Neurological Cranial nerves intact, No lateralizing signs Psych/Mental Status Mental status normal, Mood normal LAB Results Laboratory Tests 11/07 0545 Chemistry Plasma Sodium (136 - 145 mmol/L) 144 Plasma Potassium (3.5 - 5.1 mmol/L) 3.4 Plasma Chloride (98 - 107 mmol/L) 109 CO2 (Enzymatic) (21 - 32 mmol/L) 28 BUN (7 - 18 mg/dL) 12 Creatinine (0.6 - 1.3 mg/dL) 1.0 Est GFR ( Amer) (mL/min) >60 Est GFR (Non-Af Amer) (mL/min) >60 Glucose (70 - 110 mg/dL) 115 Plasma Calcium (8.5 - 10.1 mg/dL) 7.4 Amylase (25 - 115 U/L) 225 Lipase (73 - 393 U/L) 2351 Hematology WBC (4.5 - 11.5 K/uL) 7.7 RBC (4.50 - 5.90 M/uL) 3.70 Hgb (13.5 - 17.5 gm/dL) 11.6 Hct (41.0 - 53.0 %) 34.0 MCV (80 - 100 fL) 92 MCH (26 - 34 pg) 31 RDW (11.6 - 14.8 %) 13.6 Neut % (Auto) (50 - 75 %) 78.0 Lymph % (Auto) (25 - 40 %) 12.7 [place] % (Auto) (3 - 14 %) 7.3 Eos % (Auto) (0 - 4 %) 1.5 Baso % (Auto) (0 - 2 %) 0.5 Plt Count, EDTA (150 - 400 K/uL) 138 PUBS MCHC (31 - 37 g/dL) 34 Assessment and Plan Problem List 1. Pancreatitis Plan -Status post improved. -Decreased abdominal pain. -No recent nausea/vomiting -Amylase 225 -Lipase improved to 2351 (3843 on 11/06) -Consider clear liquid diet this p.m. if continued improvement Possible discharge in 1-2 days 2. Hypertension Status Chronic Onset Date Unknown Plan -Blood pressure improved but remains elevated -Continue present therapy -Monitor -Low-salt diet when taking well orally 3. Nausea and vomiting Plan -Much improved -No recent nausea/vomiting -Monitor Current status: Fair, improved Anticipated discharge date: Anticipated discharge 1-2 days Anticipated discharge placement: Home Patient care time: Time in chart review, patient interview, physical exam, CPOE, and care documentation: 25 mins Visit to patient today: 1 Complexity of care: Moderate DVT prophylaxis: Lovenox 40 mg subcutaneous daily E&M Codes Rounding: Inpt-Moderate/[id number]
[2016-11-07 10:52] VITALS: BP 134/76
[2016-11-07 14:34] VITALS: BP 159/101
[2016-11-07 18:23] VITALS: BP 154/92
[2016-11-07 22:28] VITALS: BP 167/98
[2016-11-08 01:06] VITALS: BP 168/101
[2016-11-08 01:53] VITALS: BP 154/98
[2016-11-08 07:08] VITALS: BP 142/102
[2016-11-08 11:39] VITALS: BP 168/91
[2016-11-08] MEDS ORDERED: NORVASC5 MG PO (14:22)
--- NOTE | 2016-11-08 14:35 | DIAGNOSTIC IMAGING REPORT ---
PROCEDURE: US ABDOMEN ULTRASOUND-COMPLETE INDICATION: pancreatitis TECHNIQUE: Rm scale and color Doppler sonographic images of the abdomen were obtained without comparison. COMPARISON: Abdominal ultrasound 12/18/2010 FINDINGS: The liver is normal in size, contour, and echotexture. No mass or intrahepatic biliary dilatation. The gallbladder surgically absent. No fluid or Alvarez sign. The extrahepatic common duct is normal measuring 3 mm The pancreas is not well seen. The abdominal aorta is normal in its course and caliber. The retrohepatic inferior vena cava is patent. There is appropriate hepatopetal flow in the portal vein. The right kidney measures 10.3 cm in length. The left kidney measures 10.1 cm in length. Both kidneys demonstrate normal morphology and cortical thickness without hydronephrosis, cyst, solid mass, or shadowing calculus. Color Doppler imaging demonstrates normal blood flow in each kidney. The spleen is normal in size measuring 10.6 cm in length. There is no perihepatic or perisplenic ascites. IMPRESSION: 1. Pancreas not well seen. Negative abdominal ultrasound.
[2016-11-08] MEDS ORDERED: CLONIDINE HCL0.2 MG PO (14:37)
--- NOTE | 2016-11-08 14:38 | Discharge Summary ---
Discharge Summary Report Admit Date 11/06/16 Discharge Date 11/08/16 Admission Diagnosis 1. Pancreatitis 2. Hypertension Discharge Diagnosis 1. Pancreatitis 2. Hypertension Brief History The patient is a 51-year-old white male with a significant past make a history of hypertension, generalized anxiety disorder, alcohol abuse/dependence, who presented to [facility] emergency department on the day of admission secondary to complaints of abdominal pain nausea, and vomiting. [facility] ER evaluation was consistent with acute pancreatitis and hypertension. Secondary to the above, the patient was admitted by Colin Wagner M.D. for further evaluation and treatment. For other history present illness, past medical history, family history, social history, review of systems, and admission physical examination please see the patient's history and physical examination and ER visit note in the patient's medical record. Hospital Course The following problems and their management were noted during the patient's hospitalization: 1. Pancreatitis The patient presented with findings of acute pancreatitis. No clear etiology was identified. Patient denies history of recent alcohol use, hyperlipidemia, or cholelithiasis. Patient is status post cholecystectomy. The patient was treated with IV fluid therapy, antiemetics, and pain medications. His abdominal pain had resolved at the time of discharge. He was taking clear liquids without problems. His amylase had returned to normal with minimal elevation of lipase. He was discharged home to advance his diet to a low fat diet. Outpatient follow -up with PCP. 2. Hypertension The patient had a history of hypertension. Blood pressure was elevated during his hospital stay. He was treated with Lopressor and clonidine with adequate control of blood pressure during his hospital stay. The patient was discharged on low-salt diet. He will follow up with his PCP this week for reevaluation. See discharge instructions for medical regimen. General Appearance Alert, Oriented X3, Cooperative, No acute distress Lungs Clear to auscultation, Normal air movement Cardiovascular Regular Rate, Normal S1, Normal S2 Abdomen Normal bowel sounds, Soft, No tenderness Neurological Strength at 5/5 X4 ext, Cranial nerves 3-12 NL Psych/Mental Status Mental status NL, Mood NL Lab/Imaging Laboratory Tests 11/08 0540 Chemistry Plasma Sodium (136 - 145 mmol/L) 141 Plasma Potassium (3.5 - 5.1 mmol/L) 3.0 Plasma Chloride (98 - 107 mmol/L) 105 CO2 (Enzymatic) (21 - 32 mmol/L) 29 BUN (7 - 18 mg/dL) 5 Creatinine (0.6 - 1.3 mg/dL) 0.8 Est GFR ( Amer) (mL/min) >60 Est GFR (Non-Af Amer) (mL/min) >60 Glucose (70 - 110 mg/dL) 120 Plasma Calcium (8.5 - 10.1 mg/dL) 7.4 Total Bilirubin (0.0 - 1.0 mg/dL) 1.4 AST (15 - 37 U/L) 233 ALT (12 - 78 U/L) 143 Alkaline Phosphatase (46 - 116 U/L) 152 Total Protein (6.4 - 8.2 g/dL) 5.5 Albumin (3.3 - 5.0 g/dL) 2.9 Amylase (25 - 115 U/L) 107 Lipase (73 - 393 U/L) 1079 Discharge Instructions/Meds For other recommendations regarding discharge diet, activity, followup, and discharge medications please see the patient's discharge instructions. Discharge condition: Fair, improved Greater than 30 min. was spent in the patient's discharge preparation including discharge interview and physical examination, progress note, discharge instructions, and discharge summary The patient was interviewed and examined on the day of discharge. E&M Codes Discharge: Inpt >30 min spent/[id number]
--- NOTE | 2016-11-08 15:43 | Provider's Discharge Care Plan ---
Problem, Goal, Plan Problem List 1. Pancreatitis Goals: Improve disease control, Prevent disease progress Instructions: Follow up as directed, Take meds as directed, low fat diet 2. Hypertension Goals: Improve disease control, Prevent disease progress Instructions: Follow up as directed, Take meds as directed, Avoid processed foods, Low salt diet
== END 2016-11-08 15:20 | disposition home or self-care (01) | DRG 440 ==
LOC: ED SRH 23:34 → ACUTE2 SRH 11-06 02:43 → TRANS SRH 11-06 02:43 → ACUTE2 SRH 11-06 04:04
PROVIDERS: ADMIT Student in an Organized Health Care Education/Training Program
DX: K85.00 Idiopathic acute pancreatitis without necrosis or infection (principal); R11.2 Nausea with vomiting, unspecified; I10 Essential (primary) hypertension; F41.1 Generalized anxiety disorder
CPT/HCPCS: 90001; 90004; 90047; 90074; 90100; 90155; 92235; 92530; 92690; 95059